=== PATIENT | female | born 1975 | race Caucasian/White ===

== ENCOUNTER → 2016-11-03 | Outpatient (REF) ==
[~2016-11-03] MED LIST: AMITRIPTYLINE50 MG PO; CLARITIN D TAB1 TAB PO; HYDROCODONE/APAP; MELATONIN5 M1 PO; NORCO 325 MG-7.1 TAB PO; PROMETRIUM100 MG PO; VITAMIND3 5000 PO; ZOLOFT 50MG50 MG PO; ZYRTEC 10MG10 MG PO; [UNRECOGNIZED DRUG - OTHER] TOP
== END ==
LOC: WSOH 11:30
DX: Z02.89 Encounter for other administrative examinations (principal)

== ENCOUNTER → 2016-12-19 | Outpatient (REF) | LOC: WSOH 14:00 | DX: Z02.89 Encounter for other administrative examinations (principal) ==

== ENCOUNTER 2018-04-22 09:46 | Emergency (ER) | payer OTHER ==
[~2018-04-22] VITALS: Ht 175.3 cm; Wt 109.1 kg
[2018-04-22 09:49] VITALS: TEMP 97
[2018-04-22] MEDS ORDERED: PEPCID AC 10MG10 MG PO (10:12)
[2018-04-22] MEDS ORDERED: LIDODERM 5% PATC1 EA TP (11:29)
[2018-04-22] MEDS ORDERED: FLEXERIL5 MG PO (11:29)
[2018-04-22] MEDS ORDERED: NORCO 325 MG-51 TAB PO (11:44)
[2018-04-22 11:57] VITALS: PULSE 72
== END 2018-04-22 11:57 | disposition home or self-care (01) ==
LOC: COL.ER 09:46
DX: S30.0XXA Contusion of lower back and pelvis, initial encounter (principal); I10 Essential (primary) hypertension; M62.838 Other muscle spasm; F17.210 Nicotine dependence, cigarettes, uncomplicated; Z90.89 Acquired absence of other organs; Z90.49 Acquired absence of other specified parts of digestive tract; W01.0XXA Fall on same level from slipping, tripping and stumbling without subsequent striking against object, initial encounter
CPT/HCPCS: J1885; J3010

== ENCOUNTER 2020-06-16 07:00 | Day surgery (SDC) | payer OTHER ==
[~2020-06-16] VITALS: Ht 175.3 cm; Wt 93.8 kg
[~2020-06-16 07:00] MED LIST changes: +FLEXERIL5 MG PO; +LIDODERM 5% PATC1 EA TP; +NORCO 325 MG-51 TAB PO; +PEPCID AC 10MG10 MG PO
[2020-06-16] MEDS ORDERED: VITAMIND3 5000 PO (07:21)
[2020-06-16 07:22] VITALS: BP 130/78; PULSE 85; TEMP 98.7
[2020-06-16] MEDS ORDERED: VITAMINC1000TA PO (07:22)
--- NOTE | 2020-06-16 10:03 | NUR ---
Patient to the OR with DAVID Barajas at this time.
[2020-06-16 10:42] VITALS: BP 147/86; PULSE 71; TEMP 98.1
--- NOTE | 2020-06-16 10:42 | NUR ---
Patient arrives to [facility] [address] via cart, accompanied by Rodrigo Farrell CRNA and Karl HERNANDEZ. Bedside report is received. Patient is alert and oriented. Monitoring is applied -VSS and WNL on room air. Her daughter is at the bedside. She has a clean/dry/intact dressing over her operative site. The left hand is pink, warm. She has numbness/tingling to that hand. She is able to wiggle her fingers without difficulty. She denies pain or nausea. She is offered and receives water, coffee, and jello.
[2020-06-16] MEDS ORDERED: NORCO 325 MG-51 TAB PO (10:43)
[2020-06-16 11:00] VITALS: BP 135/81; PULSE 77
--- NOTE | 2020-06-16 11:00 | NUR ---
Patient is tolerating PO well. Denies pain, nausea, or need. Neurovascular assessment of operative extremity remains unchanged.
[2020-06-16 11:15] VITALS: BP 151/90; PULSE 77
--- NOTE | 2020-06-16 11:15 | NUR ---
Patient ambulates to the restroom with steady gait. Voids and returns to room. VSS upon returning to room.
--- NOTE | 2020-06-16 11:35 | NUR ---
Patient has met discharge criteria. Discharge instructions are discussed. She denies any questions and verbalizes understanding. PIV is removed with catheter intact and hemostasis achieved. She changes to her clothing independently. She is escorted to the exit via wheelchair by staff. She is discharged to the care of her daughter, who drives her home in private vehicle at 1135.
== END 2020-06-16 11:35 | disposition home or self-care (01) ==
LOC: SDCO
DX: G56.02 Carpal tunnel syndrome, left upper limb (principal); M79.7 Fibromyalgia; M06.9 Rheumatoid arthritis, unspecified; J45.909 Unspecified asthma, uncomplicated; M19.90 Unspecified osteoarthritis, unspecified site; F17.210 Nicotine dependence, cigarettes, uncomplicated; F32.9 Major depressive disorder, single episode, unspecified; Z88.8 Allergy status to other drugs, medicaments and biological substances; Z20.822 Contact with and (suspected) exposure to COVID-19; Z80.9 Family history of malignant neoplasm, unspecified; Z82.62 Family history of osteoporosis; Z82.61 Family history of arthritis
CPT/HCPCS: J0690; J1885; J2405; J2704; J3010; J7120

== ENCOUNTER → 2020-09-02 | Outpatient (REF) ==
[~2020-09-02] MED LIST changes: +IBU800 M1 PO; +ROXICODONE 55 MG/TAB PO; +VITAMINC1000TA PO
== END ==
LOC: COL.LAB 12:37
DX: Z20.822 Contact with and (suspected) exposure to COVID-19 (principal)

== ENCOUNTER 2020-11-29 18:46 | Inpatient (IN) | payer OTHER ==
[~2020-11-29] VITALS: Ht 175.3 cm; Wt 90.9 kg
[~2020-11-29 18:46] MED LIST changes: -IBU800 M1 PO; -ROXICODONE 55 MG/TAB PO
[2020-11-29 19:04] LABS: COLLECTION METHOD CLEAN CATCH
[2020-11-29 19:07] LABS: BASO # 0.1 (0.0-0.2); BASO % 0.3 % (0.0-2.0); EOS % 0.1 % (0-4.0); GRAN # 14.8 (1.4-6.5); GRAN % 72.3 % (42.2-75.2); HEMATOCRIT 49.5 % (37.0-47.0); HEMOGLOBIN 16.7 g/dl (12.5-16.0); LYMPH # 4.4 (1.2-3.4); LYMPH % 21.2 % (20.0-51.0); MEAN CELL VOLUME 95 fl (80.0-100.0); MEAN CORPUSCULAR HEMOGLOBIN 32 pg (27.0-31.0); MEAN CORPUSCULAR HGB CONC 34 g/dl (33.0-37.0); MEAN PLATELET VOLUME 12.4 fl (7.4-10.4); MONO # 1.2 (0.1-0.6); MONO % 5.6 % (1.7-9.3); PLATELET COUNT 168 K/mm3 (130-400); RED BLOOD COUNT 5.24 M/mm3 (4.10-5.30)
[2020-11-29 19:10] LABS: MUCOUS Present /lpf; PH 6 (5-8); SQUAMOUS EPITHELIAL 0-2 /hpf; URINE APPEARANCE Clear; URINE BACTERIA None Seen /hpf; URINE BILIRUBIN Negative (NEGATIVE); URINE BLOOD Negative (NEGATIVE); URINE COLOR Yellow; URINE GLUCOSE Negative (NEGATIVE); URINE KETONE 2+ (NEGATIVE); URINE LEUKOCYTE ESTERASE Negative (NEGATIVE); URINE NITRATE Negative (NEGATIVE); URINE PROTEIN(semi-quant) Negative (NEGATIVE); URINE UROBILINOGEN Negative (NEGATIVE)
[2020-11-29 19:24] LABS: ALBUMIN 4.9 gm/dL (3.5-5.0); BILIRUBIN,TOTAL 0.9 mg/dL (0.0-1.0); CALCIUM 9.4 mg/dL (8.4-10.2); CREATININE, serum 0.67 (0.52-1.25); POTASSIUM 4.3 mmol/L (3.4-5.0); TOTAL PROTEIN 8.3 gm/dL (6.4-8.2)
[2020-11-29 19:49] LABS: C-REACTIVE PROTEIN 0.9 mg/dL (0.0-0.9)
[2020-11-30] VITALS (9 sets, daily range): BP systolic 123–143; BP diastolic 70–109; PULSE 66–91; TEMP 98–98.4
--- NOTE | 2020-11-30 07:46 | NUR ---
PATIENT AMBULATED 1 LAP IN THE GOMES AT THIS TIME
--- NOTE | 2020-11-30 09:14 | NUR ---
PATIENT RATES PAIN 6/10. PATIENT AMBULATED IN HALLWAY. THIS NURSE ASKED IF PATIENT WOULD LIKE MORE PEAIN MEDICINE. PATIENT STATES SHE WANTS TO GIVE THESE MEDICATIONS MORE TIME
[2020-11-30 10:02] LABS: HEMATOCRIT 38.8 % (37.0-47.0); MEAN CELL VOLUME 95 fl (80.0-100.0); MEAN CORPUSCULAR HEMOGLOBIN 32 pg (27.0-31.0); MEAN CORPUSCULAR HGB CONC 34 g/dl (33.0-37.0); MEAN PLATELET VOLUME 12.9 fl (7.4-10.4); PLATELET COUNT 141 K/mm3 (130-400)
[2020-11-30 10:04] LABS: HEMOGLOBIN 13.3 g/dl (12.5-16.0)
--- NOTE | 2020-11-30 10:30 | NUR ---
PATIENT AMBULATED IN HALLWAY
[2020-11-30] MEDS ORDERED: IBU800 M1 PO (12:06)
[2020-11-30] MEDS ORDERED: ROXICODONE 55 MG/TAB PO (12:07)
== END 2020-11-30 12:20 | disposition home or self-care (01) | DRG 742 ==
LOC: COL.ER 18:46 → OB 21:52
PROVIDERS: Physician Assistant; ADMIT Student in an Organized Health Care Education/Training Program
PROC: 0W9J4ZZ Drainage of Pelvic Cavity, Percutaneous Endoscopic Approach (ICD-10-PCS; 2020-11-29)
PROC: 0DNW4ZZ Release Peritoneum, Percutaneous Endoscopic Approach (ICD-10-PCS; 2020-11-29)
PROC: 0UT64ZZ Resection of Left Fallopian Tube, Percutaneous Endoscopic Approach (ICD-10-PCS; principal; 2020-11-29 22:30)
PROC: 0UT14ZZ Resection of Left Ovary, Percutaneous Endoscopic Approach (ICD-10-PCS; 2020-11-29 22:30)
DX: N83.292 Other ovarian cyst, left side (principal); K66.1 Hemoperitoneum; N83.512 Torsion of left ovary and ovarian pedicle; R19.09 Other intra-abdominal and pelvic swelling, mass and lump; K66.0 Peritoneal adhesions (postprocedural) (postinfection); F17.210 Nicotine dependence, cigarettes, uncomplicated; Z90.710 Acquired absence of both cervix and uterus
CPT/HCPCS: J0330; J0690; J1170; J1885; J2250; J2405; J2704; J2710; J3010; J7030; J7120; Q9967